=== PATIENT | male | born 1960 | race Two or more races ===

== ENCOUNTER 2022-05-21 07:07 | Outpatient (CLI) | payer OTHER | END 2022-05-21 07:08 | disposition home or self-care (01) | LOC: LAB 07:07 | PROVIDERS: ATTEND Internal Medicine | DX: N39.0 Urinary tract infection, site not specified (principal); E11.9 Type 2 diabetes mellitus without complications; E78.5 Hyperlipidemia, unspecified; E04.2 Nontoxic multinodular goiter; I10 Essential (primary) hypertension; E53.8 Deficiency of other specified B group vitamins; E55.9 Vitamin D deficiency, unspecified ==

== ENCOUNTER 2023-01-08 07:24 | Outpatient (CLI) | payer OTHER | END 2023-01-08 07:30 | disposition home or self-care (01) | LOC: LAB 07:24 | PROVIDERS: ATTEND General Practice | DX: E11.69 Type 2 diabetes mellitus with other specified complication (principal); I11.9 Hypertensive heart disease without heart failure; E66.9 Obesity, unspecified; E03.9 Hypothyroidism, unspecified; N39.9 Disorder of urinary system, unspecified; R19.5 Other fecal abnormalities ==

== ENCOUNTER → 2023-04-24 07:43 | Outpatient (CLI) | payer OTHER | END | disposition home or self-care (01) | LOC: LAB 07:43 | DX: Z12.11 Encounter for screening for malignant neoplasm of colon (principal) ==